=== PATIENT | female | born 1980 | race Two or more races ===

== ENCOUNTER 2024-11-27 10:50 | Day surgery (SDC) | payer MEDICAID, SELFPAY ==
--- NOTE | 2024-11-26 09:37 | EKG_ITS ---
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
[2024-11-26 12:05] LABS: Basophils # (Auto) 0.1 Thou/mm3 (0.0-0.2); Basophils % (Auto) 1 % (0-2.5); Eosinophils # (Auto) 0.2 Thou/mm3 (0.0-0.5); Eosinophils % (Auto) 2 % (0-10); Hematocrit 36.3 % (36.0-46.0); Hemoglobin 12.4 g/dL (12.0-16.0); Immature Granulocytes % (Auto) 1 % (0-0); Immature Granulocytes Auto 0.12 Thou/mm3 (0.00-0.00); Lymphocytes # (Auto) 2.2 Thou/mm3 (1.0-4.8); Lymphocytes % (Auto) 17 % (10-50); Mean Corpuscular HGB Conc 34.2 g/dl (31.0-37.0); Mean Corpuscular Hemoglobin 29.3 pg (25.0-35.0); Mean Corpuscular Volume 86 fL (80-100); Monocytes # (Auto) 0.9 Thou/mm3 (0.0-0.8); Monocytes % (Auto) 7 % (0-12); Neutrophils # (Auto) 9.3 Thou/mm3 (1.8-7.7); Neutrophils % (Auto) 72 % (37-80); Nucleated Red Blood Cell % 0 /100 WBC (0); Platelet Count 387 Thou/mm3 (140-440); RDW Standard Deviation 44.9 fL (36.4-46.3); Red Blood Count 4.23 Miln/mm3 (4.00-5.20); White Blood Count 12.9 Thou/mm3 (3.6-11.0)
[2024-11-26 12:10] LABS: HCG,Qualitative Serum Negative
[2024-11-26 12:15] LABS: INR 0.9 (0.9-1.3); Partial Thromboplastin Time 28.2 Seconds (22.0-36.0); Prothrombin Time 10.4 Seconds (9.0-12.2)
[2024-11-26 12:27] LABS: Alanine Aminotransferase 10 U/L (10-49); Albumin, Serum 4.2 gm/dL (3.5-5.0); Albumin/Globulin Ratio 1.4 (1.2-2.2); Alkaline Phosphatase 108 U/L (46-116); Anion Gap 10 (7-16); Aspartate Amino Transferase 16 U/L (0-34); BUN/Creatinine Ratio 12 Ratio (12-20); Bilirubin,Total 0.4 mg/dL (0.3-1.2); Blood Urea Nitrogen 12 mg/dL (9-23); Calcium 8.8 mg/dL (8.3-10.6); Calcium (Corrected) 8.8 mg/dL (8.5-10.1); Carbon Dioxide 28.3 mMol/L (20.0-31.0); Chloride 103 mMol/L (98-107); Globulin 3.1 gm/dL (2.3-3.5); Glucose 140 mg/dL (74-106); Osmolality,Calculated 282 (275-295); Potassium 4.3 mMol/L (3.4-5.1); Sodium 141 mMol/L (136-145); Total Protein 7.3 gm/dL (5.7-8.2); eGFR > 60 See Note
--- NOTE | 2024-11-26 12:44 | ESHP_ITS ---
RE: BEE KEVIN : 1980 DATE OF ADMISSION: 11/27/2024 HISTORY OF PRESENT COMPLAINT: The patient presented to me earlier with history of pain and numbness in the right hand. The outer 4 digits of the right hand goes to sleep. This is going on for a long period of time. The patient stated discomfort level 9/10. It affects her routine and daily activities and activities of daily living. The patient wants something to be done about it. The patient has had nerve conduction studies and EMG done, which confirmed carpal tunnel compression. PAST MEDICAL HISTORY: The patient has history of diabetes mellitus. No history of high blood pressure, asthma, seizures, chest pain, myocardial infarction, or bleeding disorder. PAST SURGICAL HISTORY: and left knee surgery. DRUG HISTORY: The patient is on; 1. Carvedilol. 2. Gabapentin. 3. Humalog. 4. Ibuprofen. 5. Albuterol. ALLERGIES: NIL KNOWN. FAMILY HISTORY AND SOCIAL HISTORY: The patient denies smoking, drinking and is working. PHYSICAL EXAMINATION: GENERAL: Normal built lady. VITAL SIGNS: Pulse 88 per minute, blood pressure is 130/76. NECK: Soft. Supple. No masses felt. CARDIOVASCULAR SYSTEM: First and second heart sounds normal. No murmur heard. LUNGS: Bilateral vesicular breath sounds. CHEST: Clear. ABDOMEN: Soft. No masses felt. Bowel sounds present. EXTREMITIES: Right hand examination revealed no wasting of the thenar and/or hypothenar eminence. There is decreased sensation in out of 4 digits. 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 Tinel signs and Phalen signs are positive. 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 ASSESSMENT AND PLAN: Since the patient is symptomatic and is causing discomfort, therefore, right carpal tunnel release was discussed and advised. Detailed discussion took place with the help of pictures and diagram. Risks with anesthesia were explained and that includes, but not limited to reaction to anesthetic agents, cardiac arrest, and rarely it might be fatal. Risks with outpatient includes infection and if that happens, the patient may need a further surgical procedure. Other risks include delayed healing, wound dehiscence etc. No guarantees were given regarding outcome of the procedure and/or functional outcome. Indeed, because the patient has longstanding diabetes mellitus and there is demyelinating, the patient may continue having some degree of discomfort and numbness and the patient is fully aware of that. Accordingly, surgery is booked for 11/27/2024. Appropriate lab work was done. DT: 12:33:04 TT: 12:42:00 Ref: [id number] - TID: [id number]
[2024-11-26 14:17] VITALS: BMI 39.2
--- NOTE | 2024-11-26 14:40 | SUR.PREOP ---
WBC 12.5, called Dr Arreola office and left message with [facility], they will let know and call me back,
--- NOTE | 2024-11-26 15:51 | ESHP_ITS ---
RE: BEE KEVIN : 1980 DATE OF ADMISSION: 11/26/2024 HISTORY AND PHYSICAL: The patient came to my office on 11/26/2024 for detailed preop history and physical examination. HISTORY OF PRESENT COMPLAINT: The patient has got numbness on the right hand on the palmar aspect. This is going on for a long period of time. There is a burning and tingling sensation. Right hand goes to sleep and she has to shake her hand to bring it back to life. The intensity of discomfort is 9/10. Nerve conduction studies and EMG confirmed severe carpal tunnel compression. PAST MEDICAL HISTORY: The patient has a history of diabetes mellitus seizures, chest pain, myocardial infarction, or bleeding disorder. PAST SURGICAL HISTORY: and left knee surgery. DRUG HISTORY: The patient on: 1. Carvedilol. 2. Humalog. 3. Ibuprofen, which she stopped recently. ALLERGIES: NIL KNOWN. FAMILY HISTORY AND SOCIAL HISTORY: The patient denies smoking, drinking, and is working. PHYSICAL EXAMINATION: GENERAL: Normal built lady. VITAL SIGNS: Pulse 88 per minute, blood pressure 130/76. NECK: Soft. Supple. No mass felt. Trachea is centrally placed. CARDIOVASCULAR SYSTEM: First and second heart sounds normal. No murmur heard. RESPIRATORY SYSTEM: Bilateral vesicular breath sounds. CHEST: Clear. ABDOMEN: Soft. No mass felt. Bowel sounds present. EXTREMITIES: Right hand examination revealed no wasting of the thenar and/or hypothenar eminence. 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 There is decreased sensation in the outer 4 digits. Tinel signs and Phalen signs are positive. Nerve conduction studies and EMG confirm severe carpal tunnel compression with demyelination consistent with diabetes mellitus. Diagnosis, prognosis was explained to her in detail with the help of posters and diagram. I explained the surgical decompression needed. There is some demyelination and that may not recover. Indeed, with diabetes mellitus, that may keep on getting worse and the patient may continue having some degree of numbness. Risks of anesthesia were explained and that includes, but not limited to reaction to anesthetic agents, cardiac arrest, and rarely it might be fatal. Risk with operation includes infection and if that happens, the patient may need further surgical procedure. Other risks include delayed healing, wound dehiscence, etc. No guarantee is given regarding outcome of the procedure and/or relief of symptoms. Appropriate lab work is being done. Surgery is booked for 11/27/2024. DT: 12:49:55 TT: 15:10:00 Ref: [id number] - TID: [id number]
[2024-11-27] VITALS (9 sets, daily range): BP systolic 108–154; BP diastolic 61–91; PULSE 70–77; RESP 12–20; TEMP 36.1–36.4; O2SAT 96–100; BMI 40.4
--- NOTE | 2024-11-27 11:40 | SUR.PREOP ---
1140: spoke to LUNA Mann for BS 64. Order to give D5 1/2 NS, order carried out.
[2024-11-27] MEDS: DEXTROSE 5%-0.45% NS 500 ML 100 ML IV (11:43)
--- NOTE | 2024-11-27 12:45 | ESOP_ITS ---
Date of Procedure 11/27/24 Pre Op Diagnosis Right carpal tunnel compression Post Op Diagnosis Same Procedure Right carpal tunnel release Findings Patient has rather bulky palmaris brevis muscle. Beside that deep carpal ligament was quite thick. Procedure Description The patient was given general endotracheal anesthesia. Was satisfactory a nesthesia achieved a tourniquet was placed on right upper arm. Following that the part was thoroughly prepped and draped. After using Esmarch the tourniquet pressure was raised to 250 mmHg A skin incision was made from the wrist crease extending distally for about 2 to 2-1/2 inches long. Deeper dissection was carried out. The subcu tissue and the fascia was incised in the line of his skin incision. Following that palmar aponeurosis was incised in the line of his skin incision. Palmaris brevis muscle was encountered. It was quite bulky and thick. It was incised in the line of his skin incision. The deep carpal ligament was encountered. It appeared very thick ligament. Taking care not to damage any deeper structure a gentle stab incision was made. A [place] was introduced underneath the deep carpal ligament and then the deep carpal ligament was incised all along its vertical length The end of the procedure the median nerve was thoroughly decompressed and blood vessel could be seen running over rate Wound was irrigated with antibiotic solution every 4 to 5 minutes Closure was done with the help of 3-0 Prolene in an interrupted fashion. Mattress sutures were applied. Following that about 10 mL of quarter percent Marcaine was injected at the skin incision site After cleaning the wound with hydrogen peroxide solution a sterile dressing was applied and tourniquet pressure was released Patient tolerated procedure well. Estimated blood loss 1 mL. Prognosis in this case is fair to good. Anesthesia GETA Pathology / specimen None Estimated Blood Loss 2 Surgeon Yoni Casey MD Surgical Staff Operation Date: 11/27/24 13:15 Case Staff JOY OPERATOR: Jake Julien
--- NOTE | 2024-11-27 12:49 | SUR.PHASEI ---
1248 Patient arrived to recovery resting comfortably in [facility], drowsy, on oxygen 5L via nasal cannula, breathing unlabored, vital signs stable, denies pain, dressing intact to right literary writer, sutures, adaptic soaked in betadine fluffs, bias roll, silk tape, denies nausea, report received from Deon SOLORIO and Johnathan CARRASCO
--- NOTE | 2024-11-27 14:03 | SUR.PHASEII ---
1405 patient standing from [place] to wheelchair, ready to go home, had an episode of emesis, 250ml-clear fluid, immediately following patient shared she felt better, will notify anesthesia provide by Karmen Nathan RN, as patient no longer has IV in place
[2024-11-27] MEDS: ONDANSETRON ODT 4 MG TABRAP PO (14:10)
--- NOTE | 2024-11-27 14:18 | SUR.PHASEII ---
1418 Patient meets discharge criteria from recovery, awake and alert, breathing unlabored, vital signs stable, dressing intact, no bleeding noted, arm sling provided for support, eating ice chips; denies nausea, patient assisted with dressing into her clothing by this machine sign writer, discharge instructions given to patient and patients brother, brother signed discharge instructions. Patient given all her belongings prior to discharge, transported via wheelchair and left in a private vehicle.
== END 2024-11-27 14:18 | disposition home or self-care (01) ==
PROVIDERS: Anesthesiology; PCP Family Medicine; Referring Provider Orthopaedic Surgery; Visit Provider Orthopaedic Surgery
PROC: (CPT 64721; principal; 2024-11-27 13:00)
DX: G56.01 Carpal tunnel syndrome, right upper limb (principal); I25.2 Old myocardial infarction; E11.9 Type 2 diabetes mellitus without complications; Z01.810 Encounter for preprocedural cardiovascular examination
CPT/HCPCS: 64721; 36415; 80053; 84703; 85025; 85610; 85730; 93005; A4217; A4649; J0690; J1580; J2250; J2704; J3010; J3490; J7030; J7042; Q0162; J0665